=== PATIENT | female | born 1960 | race Caucasian/White ===

== ENCOUNTER 2022-07-19 07:42 | Day surgery (SDC) | payer OTHER ==
[~2022-07-19] VITALS: Ht 160 cm; Wt 122.5 kg
[2022-07-19] MEDS ORDERED: fentaNYL citrate 0.05 MG/ML VIAL ONE (10:21)
[2022-07-19] MEDS ORDERED: MIDAZOLAM 2 MG/2 ML VIAL ONE (10:22)
[2022-07-19] MEDS: MIDAZOLAM 2 MG/2 ML VIAL IVP ONE (10:33)
== END 2022-07-19 13:20 | disposition home or self-care (01) ==
LOC: MDS 07:42 → MMU 07:43 → MDS 13:20
PROVIDERS: ATTEND Internal Medicine Gastroenterology
DX: R13.13 Dysphagia, pharyngeal phase (principal); I10 Essential (primary) hypertension; E11.9 Type 2 diabetes mellitus without complications; E78.5 Hyperlipidemia, unspecified; E11.40 Type 2 diabetes mellitus with diabetic neuropathy, unspecified; Z86.73 Personal history of transient ischemic attack (TIA), and cerebral infarction without residual deficits; Z88.8 Allergy status to other drugs, medicaments and biological substances; Z91.040 Latex allergy status; Z79.4 Long term (current) use of insulin; Z79.82 Long term (current) use of aspirin; Z79.899 Other long term (current) drug therapy; Z20.822 Contact with and (suspected) exposure to COVID-19
CPT/HCPCS: 36415; 43239; 86677; 87426; J2250; J3010